=== PATIENT | female | born 1980 | race Caucasian/White ===

== ENCOUNTER 2016-10-19 20:44 | Emergency (ER) | payer MEDICAID ==
[2016-10-19 23:03] LABS: BASOPHIL % 0.7 % (0-2); PLATELET COUNT 256 x10^3mcL (130-400)
[2016-10-19 23:06] LABS: UA SPECIFIC GRAVITY 1.025 (1.005-1.035); microscopic required? YES; urine erythrocyte 1+ (NEGATIVE)
[2016-10-19 23:20] LABS: RED CELL DISTRIBUTION WIDTH 16.4 % (11.5-14.5)
[2016-10-19 23:25] LABS: CARBON DIOXIDE 30.2 mmol/L (21-32); CREATININE SERUM 1.1 mg/dL (0.6-1.0); POTASSIUM SERUM 4.6 mmol/L (3.5-5.1)
[2016-10-19 23:30] LABS: ALBUMIN 3.4 g/dL (3.4-5.0); BILIRUBIN TOTAL 0.3 mg/dL (0.20-1.00); TOTAL PROTEIN, SERUM 6.9 g/dL (6.4-8.2)
[2016-10-20 00:49] VITALS: BP 143/88
== END 2016-10-20 00:54 | disposition home or self-care (01) ==
LOC: ED 20:44
PROVIDERS: Specialist
DX: N39.0 Urinary tract infection, site not specified (principal); Z87.448 Personal history of other diseases of urinary system
CPT/HCPCS: 83880; J0696; J2405; J3010; J7030